=== PATIENT | female | born 2005 | race Hispanic/Latino ===

== ENCOUNTER 2023-08-23 00:16 | Emergency (ER) | payer MEDICAID, OTHER ==
[~2023-08-23] VITALS: Ht 152.4 cm; Wt 57.2 kg
[~2023-08-23 00:16] MED LIST: DOCU-116 PO; HYDR30CR79 RC; IBUP-2070 PO; POLY17PO4 PO; WITC1MED TP
[2023-08-23] MEDS: MORPHINE 2 MG SYG IVP ONE ×2 (01:05→04:40)
[2023-08-23] MEDS: ONDANSETRON 4MG INJ IVP ONE (01:06)
[2023-08-23 02:06] LABS: RAPID GROUP A STREP negative (NEGATIVE)
[2023-08-23 02:13] LABS: SARS-CoV-2, RNA, NAAT NEGATIVE SARS CoV-2 (NEGATIVE)
[2023-08-23 02:16] LABS: INFLUENZA TYPE A Negative For Type A (NEGATIVE); INFLUENZA TYPE B Negative For Type B (NEGATIVE)
[2023-08-23 05:03] LABS: APPEARANCE,URINE CLEAR (CLEAR); BILIRUBIN,URINE NEGATIVE (NEGATIVE); COLOR,URINE LIGHT-YELLOW (YELLOW); GLUCOSE, URINE (UA) NEGATIVE (NEGATIVE); KETONES,URINE 60 mg/dL (NEGATIVE); LEUKOCYTE ESTERASE ,URINE NEGATIVE Leu/uL (NEGATIVE); NITRATE,URINE NEGATIVE (NEGATIVE); OCCULT BLOOD,URINE NEGATIVE (NEGATIVE); PROTEIN,URINE NEGATIVE (NEGATIVE); UROBILINOGEN,URINE 0.2 mg/dL (0.2-1.0)
[2023-08-23 05:09] VITALS: TEMP 100.5
[2023-08-23] MEDS: ACETAMINOPHEN 325 MG TAB PO ONE (05:09)
[2023-08-23 05:10] LABS: ADD UA MICROSCOPIC YES
[2023-08-23 05:12] LABS: BACTERIA,URINE RARE /HPF (None Seen); MUCUS,URINE RARE LPF (None Seen); SQUAMOUS EPITHELIAL CELL,UR RARE /HPF (0-2)
[2023-08-23 05:21] LABS: BASOPHILS # (AUTO) 0.05 K/uL (0.00-0.20); BASOPHILS % (AUTO) 0.3 % (0.0-5.0); EOSINOPHILS # (AUTO) 0.01 K/uL (0.00-0.70); EOSINOPHILS % (AUTO) 0.1 % (0.0-8.0); HEMATOCRIT 37.7 % (36-48); IMMATURE GRANULOCYTE ABSOLUTE 0.05 K/uL (0-1); LYMPHOCYTES # (AUTO) 0.9 K/uL (1.0-4.8); LYMPHOCYTES % (AUTO) 5.9 % (21.0-51.0); MEAN CORPUSCULAR VOLUME 85.5 fL (80-100); MONOCYTES % (AUTO) 6.6 % (3.0-13.0); NEUTROPHILS # (AUTO) 12.7 K/uL (1.8-7.7); NEUTROPHILS % (AUTO) 86.8 % (40.0-77.0); PLATELET COUNT (AUTO) 221 K/uL (130-400); RED BLOOD CELL COUNT(AUTO) 4.41 MIL/uL (4.00-5.50); RED CELL DISTRIBUTION WIDTH 12.8 % (11.0-15.5); WHITE BLOOD COUNT (AUTO) 14.6 K/uL (4.8-10.8)
[2023-08-23 05:31] LABS: ALBUMIN 3.5 g/dL (3.5-5.0); BILIRUBIN,TOTAL 0.4 mg/dL (0.2-1.0); CREATININE 0.5 mg/dL (0.5-1.0); POTASSIUM 4.1 mmol/L (3.5-5.1); TOTAL PROTEIN, SERUM 7.3 g/dL (6.0-8.3)
[2023-08-23] MEDS ORDERED: ACET325T51 PO (05:39)
[2023-08-23 05:43] VITALS: BP 116/72; PULSE 92; RESP 20; O2SAT 99
[2023-08-23] MEDS: 0.9%NACL 1000ML 2,000 ML IV ONE (05:58)
== END 2023-08-23 06:35 | disposition home or self-care (01) ==
LOC: EDH 00:16
DX: O20.0 Threatened abortion (principal); O26.891 Other specified pregnancy related conditions, first trimester; R50.9 Fever, unspecified; Z20.822 Contact with and (suspected) exposure to COVID-19; Z79.899 Other long term (current) drug therapy; Z3A.01 Less than 8 weeks gestation of pregnancy
CPT/HCPCS: 99285; 96374; 76801; 87635; 96375; 80053; 84702; 85025; 87880; 87804 ×2; 81001; 81025; 36415; 96376; J2270 ×2; J7030; J2405